=== PATIENT | female | born 1990 | race Hispanic/Latino ===

== ENCOUNTER 2017-10-16 09:03 | Emergency (ER) | payer MEDICAID, OTHER ==
[~2017-10-16 09:03] MED LIST: DOCU-116 PO; IBUP-2077 PO; PNV91TAB3 PO
== END 2017-10-16 09:45 | disposition home or self-care (01) ==
LOC: EDH 09:03
DX: B34.9 Viral infection, unspecified (principal); Z79.899 Other long term (current) drug therapy; Z98.890 Other specified postprocedural states

== ENCOUNTER 2017-12-10 18:03 | Emergency (ER) | payer OTHER ==
[2017-12-10] MEDS ORDERED: IBUPROFEN 800 MG TAB ONE (18:53)
== END 2017-12-10 19:07 | disposition home or self-care (01) ==
LOC: EDH 18:03
DX: S60.221A Contusion of right hand, initial encounter (principal); X58.XXXA Exposure to other specified factors, initial encounter; Y93.02 Activity, running; Y92.89 Other specified places as the place of occurrence of the external cause; Y99.8 Other external cause status
CPT/HCPCS: 73130

== ENCOUNTER 2019-09-10 11:20 | Emergency (ER) | payer MEDICAID ==
[2019-09-10] MEDS ORDERED: IPRATROPIUM/ALBUTEROL SULFATE 3 ML SOLUTION IH ONE (11:50)
[2019-09-10 12:06] LABS: RAPID GROUP A STREP NEGATIVE (NEGATIVE)
== END 2019-09-10 13:39 | disposition home or self-care (01) ==
LOC: EDH 11:20
DX: J20.9 Acute bronchitis, unspecified (principal)
CPT/HCPCS: 71046; 87804; 87880; 94640

== ENCOUNTER 2020-01-12 23:15 | Emergency (ER) | payer MEDICAID | END 2020-01-13 01:31 | disposition home or self-care (01) | LOC: EDH 23:15 | DX: S00.83XA Contusion of other part of head, initial encounter (principal); S40.021A Contusion of right upper arm, initial encounter; S40.022A Contusion of left upper arm, initial encounter; F07.81 Postconcussional syndrome; Y04.2XXA Assault by strike against or bumped into by another person, initial encounter; Y92.89 Other specified places as the place of occurrence of the external cause; Y93.89 Activity, other specified; Y99.8 Other external cause status; Z98.890 Other specified postprocedural states | CPT/HCPCS: 70450; 81025 ==

== ENCOUNTER 2020-08-18 13:41 | Emergency (ER) | payer MEDICAID ==
[2020-08-18 14:19] LABS: APPEARANCE,URINE CLEAR (CLEAR); BILIRUBIN,URINE NEGATIVE (NEGATIVE); COLOR,URINE YELLOW (YELLOW); GLUCOSE, URINE (UA) NEGATIVE (NEGATIVE); KETONES,URINE NEGATIVE (NEGATIVE); LEUKOCYTE ESTERASE ,URINE NEGATIVE (NEGATIVE); NITRATE,URINE NEGATIVE (NEGATIVE); OCCULT BLOOD,URINE TRACE-INTACT (NEGATIVE); PROTEIN,URINE NEGATIVE (NEGATIVE); UROBILINOGEN,URINE 0.2 mg/dL (0.2-1.0)
[2020-08-18] MEDS ORDERED: ONDANSETRON HCL 4 MG/2 ML VIAL ONE (14:28)
[2020-08-18] MEDS ORDERED: ACETAMINOPHEN EXTRA STRENGTH 500 MG TABLET ONE (14:28)
[2020-08-18 14:35] LABS: BASOPHILS % (AUTO) 0.5 % (0.0-5.0); EOSINOPHILS % (AUTO) 0.4 % (0.0-8.0); HEMATOCRIT 44.6 % (36-48); LYMPHOCYTES % (AUTO) 20.3 % (21.0-51.0); MEAN CORPUSCULAR HGB CONC 33.2 g/dL (32.0-36.0); MEAN CORPUSCULAR VOLUME 93.5 fL (79-99); MONOCYTES % (AUTO) 11.9 % (3.0-13.0); NEUTROPHILS % (AUTO) 66.6 % (40.0-77.0); PLATELET COUNT (AUTO) 269 K/uL (130-400); RED BLOOD CELL COUNT(AUTO) 4.77 MIL/uL (4.00-5.50); RED CELL DISTRIBUTION WIDTH 12.1 % (11.0-15.5); WHITE BLOOD COUNT (AUTO) 7.6 K/uL (4.8-10.8)
[2020-08-18 14:41] LABS: HCG,QUAL RESULT NEGATIVE (NEGATIVE)
[2020-08-18 15:01] LABS: ALBUMIN 3.8 g/dL (3.5-5.0); BILIRUBIN,TOTAL 0.2 mg/dL (0.2-1.0); CREATININE 0.9 mg/dL (0.5-1.5); TOTAL PROTEIN, SERUM 8.2 g/dL (6.0-8.3)
[2020-08-18 15:05] LABS: POTASSIUM 2.8 mmol/L (3.5-5.1)
[2020-08-18 15:25] LABS: BACTERIA,URINE Rare /HPF (None Seen); RBC,URINE 0-1 /HPF (0-1); SQUAMOUS EPITHELIAL CELL,UR Few /HPF (0-2); WBC,URINE 0-1 /HPF (0-1)
[2020-08-18] MEDS ORDERED: POTASSIUM CHLORIDE 20 MEQ ERTAB PO ONE (15:48)
== END 2020-08-18 18:29 | disposition home or self-care (01) ==
LOC: EDH 13:41
DX: R10.13 Epigastric pain (principal); M54.5 Low back pain; R50.9 Fever, unspecified; Z20.828 Contact with and (suspected) exposure to other viral communicable diseases; F41.9 Anxiety disorder, unspecified
CPT/HCPCS: 36415; 71046; 74176; 80053; 81001; 81025; 85025; 87426; 87804 ×2; 96374; 99284; J2405; U0003

== ENCOUNTER 2021-05-12 17:46 | Emergency (ER) | payer MEDICAID ==
[~2021-05-12] VITALS: Ht 162.6 cm; Wt 61.7 kg
[2021-05-12 17:48] VITALS: BP 127/74
[2021-05-12 20:05] LABS: BASOPHILS % (AUTO) 0.3 % (0.0-5.0); EOSINOPHILS % (AUTO) 0.2 % (0.0-8.0); LYMPHOCYTES % (AUTO) 16.1 % (21.0-51.0); MEAN CORPUSCULAR HGB CONC 32.4 g/dL (32.0-36.0); MEAN CORPUSCULAR VOLUME 95.7 fL (79-99); MONOCYTES % (AUTO) 7.8 % (3.0-13.0); NEUTROPHILS % (AUTO) 75.2 % (40.0-77.0); PLATELET COUNT (AUTO) 303 K/uL (130-400); RED BLOOD CELL COUNT(AUTO) 4.39 MIL/uL (4.00-5.50); RED CELL DISTRIBUTION WIDTH 12.8 % (11.0-15.5); WHITE BLOOD COUNT (AUTO) 14.9 K/uL (4.8-10.8)
[2021-05-12 20:11] LABS: APPEARANCE,URINE Clear (CLEAR); BILIRUBIN,URINE Negative (NEGATIVE); COLOR,URINE Yellow (YELLOW); GLUCOSE, URINE (UA) Negative (NEGATIVE); KETONES,URINE 15 mg/dL (NEGATIVE); LEUKOCYTE ESTERASE ,URINE Moderate (NEGATIVE); NITRATE,URINE Negative (NEGATIVE); OCCULT BLOOD,URINE Negative (NEGATIVE); PH,URINE 6.5 (5.0-8.0); PROTEIN,URINE Negative (NEGATIVE); UROBILINOGEN,URINE 0.2 mg/dL (0.2-1.0)
[2021-05-12 20:15] LABS: HCG,QUAL RESULT NEGATIVE (NEGATIVE)
[2021-05-12 20:16] LABS: CREATININE 0.8 mg/dL (0.5-1.5); POTASSIUM 3.2 mmol/L (3.5-5.1)
[2021-05-12 20:20] VITALS: BP 128/70
[2021-05-12 20:20] LABS: BILIRUBIN,TOTAL 0.4 mg/dL (0.2-1.0); TOTAL PROTEIN, SERUM 7.9 g/dL (6.0-8.3)
[2021-05-12 20:41] LABS: RBC,URINE 0-1 /HPF (0-1)
[2021-05-12] MEDS ORDERED: CEPH500B PO (20:41)
[2021-05-12] MEDS ORDERED: FAMO-136 PO (20:41)
[2021-05-12 20:42] LABS: BACTERIA,URINE Rare /HPF (None Seen); SQUAMOUS EPITHELIAL CELL,UR Few /HPF (0-2)
== END 2021-05-12 20:52 | disposition home or self-care (01) ==
LOC: EDH 17:46
DX: K29.70 Gastritis, unspecified, without bleeding (principal); N39.0 Urinary tract infection, site not specified; F41.9 Anxiety disorder, unspecified; Z79.1 Long term (current) use of non-steroidal anti-inflammatories (NSAID); Z79.899 Other long term (current) drug therapy
CPT/HCPCS: 36415; 80053; 81001; 81025; 82150; 83690; 85025; 87088

== ENCOUNTER 2023-09-30 03:51 | Observation (INO) | payer MEDICAID ==
[~2023-09-30] VITALS: Ht 162.6 cm; Wt 79.4 kg
[~2023-09-30 03:51] MED LIST changes: +CEPH500B PO; +FAMO-136 PO
[2023-09-30 03:55] VITALS: BP 84/47; PULSE 113; RESP 20
[2023-09-30 04:51] LABS: ADD UA MICROSCOPIC YES; APPEARANCE,URINE CLEAR (CLEAR); BILIRUBIN,URINE NEGATIVE (NEGATIVE); COLOR,URINE LIGHT-YELLOW (YELLOW); GLUCOSE, URINE (UA) NEGATIVE (NEGATIVE); KETONES,URINE 5 mg/dL (NEGATIVE); LEUKOCYTE ESTERASE ,URINE 500 Leu/uL (NEGATIVE); NITRATE,URINE NEGATIVE (NEGATIVE); OCCULT BLOOD,URINE NEGATIVE (NEGATIVE); PROTEIN,URINE 20 mg/dL (NEGATIVE); UROBILINOGEN,URINE 0.2 mg/dL (0.2-1.0)
[2023-09-30 04:58] LABS: AMPHET/METH SCREEN,URINE NEGATIVE (NEGATIVE); BARBITURATE SCREEN, URINE NEGATIVE (NEGATIVE); BENZODIAZEPINES SCREEN,URINE NEGATIVE (NEGATIVE); CANNABINOID SCREEN,URINE NEGATIVE (NEGATIVE); COCAINE SCREEN,URINE NEGATIVE (NEGATIVE); MUCUS,URINE RARE LPF (None Seen); OPIATE SCREEN,URINE NEGATIVE (NEGATIVE); PHENCYCLIDINE SCREEN,URINE NEGATIVE (NEGATIVE); RBC,URINE 0-1 /HPF (0-1); SQUAMOUS EPITHELIAL CELL,UR MOD /HPF (0-2)
[2023-09-30] MEDS ORDERED: LACTATED RINGERS 1000ML IV SCH (05:30)
[2023-09-30] MEDS ORDERED: MEPERIDINE-PF 50 MG/ML SYG IVP ONE (07:00)
[2023-09-30] MEDS ORDERED: PROMETHAZINE HCL 25 MG/ML 1ML AMPULE IM ONE ×2 (07:00→14:30)
[2023-09-30] MEDS ORDERED: TERBUTALINE SULFATE VIAL 1MG/ML SQ SCH (08:30)
[2023-09-30] MEDS ORDERED: TERBUTALINE SULFATE VIAL 1MG/ML SQ ONE (08:43)
[2023-09-30] MEDS: OSELTAMIVIR PHOSPHATE 75 MG CAP PO SCH ×2 (08:47→16:22)
[2023-09-30] MEDS ORDERED: MAGNESIUM 4GM PREMIX 100ML 100 ML IV SCH (11:00)
[2023-09-30] MEDS ORDERED: CALCIUM GLUC 1GM/10ML VIAL IV PRN (11:00)
[2023-09-30] MEDS: CELESTONE SOLUSPAN 6 MG/ML 5ML VIAL IM SCH (11:50)
[2023-09-30] MEDS: MAGNESIUM SULFATE 40GM/1000ML 1,000 ML IV SCH (11:59)
[2023-09-30 13:07] LABS: HEMATOCRIT 24.5 % (36-48); MEAN CORPUSCULAR HEMOGLOBIN 25.2 pg (27.0-33.0); MEAN CORPUSCULAR HGB CONC 30.2 g/dL (32.0-36.0); MEAN CORPUSCULAR VOLUME 83.3 fL (79-99); NUCLEATED RED BLOOD CELLS 0.4 % (0.0-0.19); PLATELET COUNT (AUTO) 282 K/uL (130-400); RED BLOOD CELL COUNT(AUTO) 2.94 MIL/uL (4.00-5.50); RED CELL DISTRIBUTION WIDTH 15.2 % (11.0-15.5); WHITE BLOOD COUNT (AUTO) 13.7 K/uL (4.8-10.8)
[2023-09-30 13:51] LABS: HIV 1&2 ANTIBODY Non-Reactive (Negative); HIV-1 p24 Antigen Non-Reactive (Negative)
[2023-09-30] MEDS ORDERED: MEPERIDINE-PF 25 MG/ML SYG IM ONE (14:30)
[2023-09-30] MEDS ORDERED: ONDANSETRON 4MG INJ IVP ONE (15:00)
[2023-09-30] MEDS ORDERED: MEPERIDINE-PF 25 MG/ML SYG IVP ONE (15:00)
[2023-09-30] MEDS: ACETAMINOPHEN 325 MG TAB PO PRN ×2 (15:17→21:08)
[2023-09-30 15:29] LABS: RAPID GROUP A STREP negative (NEGATIVE)
[2023-09-30 15:33] LABS: SARS-CoV-2, RNA, NAAT NEGATIVE SARS CoV-2 (NEGATIVE)
[2023-09-30 15:35] LABS: INFLUENZA TYPE B Negative For Type B (NEGATIVE)
[2023-09-30 15:37] LABS: INFLUENZA TYPE A Positive For Type A (NEGATIVE)
[2023-09-30] MEDS: ONDANSETRON 4MG INJ IVP PRN (21:31)
[2023-10-01] MEDS: ONDANSETRON 4MG INJ IVP PRN (06:17)
[2023-10-01 08:13] VITALS: TEMP 102.3
[2023-10-01] MEDS: MAGNESIUM SULFATE 40GM/1000ML 1,000 ML IV SCH (08:13)
[2023-10-01] MEDS: ACETAMINOPHEN 325 MG TAB PO PRN ×2 (08:13→17:02)
[2023-10-01] MEDS: OSELTAMIVIR PHOSPHATE 75 MG CAP PO SCH (08:47)
[2023-10-01 15:14] LABS: RAPID PLASMA REAGIN NONREACTIVE (NONREACTIVE)
[2023-10-07] MEDS ORDERED: OSEL75 PO (15:58)
[2023-10-07] MEDS ORDERED: PROM25I PO (15:58)
[2023-10-07] MEDS ORDERED: PNV1TABL57 PO (15:58)
== END 2023-10-01 18:00 | disposition home or self-care (01) ==
LOC: EDH 03:51 → LDH 03:52 → INTOOBSV 03:52 → OBSVTOIN 03:52 → LDH 03:53
PROVIDERS: ADMIT Obstetrics & Gynecology; ATTEND Obstetrics & Gynecology
DX: O60.03 Preterm labor without delivery, third trimester (principal); Z20.822 Contact with and (suspected) exposure to COVID-19; Z3A.35 35 weeks gestation of pregnancy
CPT/HCPCS: 96374; 96361 ×3; 96375; 96372; 80305; 85027; 86592; 86850; 86900; 86901; 87088; 87880; 87804 ×2; 87340; 86701; 87390; 81001; 36415 ×2; 87635; 76815; 96376; 96365; 96366; 83735; G0378 ×38; J7120; J0702; J3105; J2405 ×3; J2175 ×2; J3475 ×3; A4351; 96360